=== PATIENT | male | born 1965 | race Caucasian/White ===

== ENCOUNTER 2016-09-01 19:23 | Emergency (ER) | payer SELFPAY ==
[~2016-09-01 19:23] MED LIST: ABILIFY15 MG PO; ASA CHILDREN'S81 MG PO; CELEXA10 MG PO; CELEXA40 MG PO; GLUCOPHAGE-DPS500 MG PO; GLUCOTROL DPS10 MG PO; IMDUR DPS30 MG PO; LANTUS100 UNITS/ SQ; MEVACOR40 MG PO; MOTRIN-DPS800 MG PO; MULTI VITAMIN1 EACH PO; NITROSTAT0.4 MG SL; NOVOLOG100 UNIT/2 SQ; PLAVIX75 MG PO; SEROQUEL50 MG PO; XANAX DPS0.25 MG PO
--- NOTE | 2016-09-21 21:26 | ER ---
ADMIT: 09/01/2016 RM/LOC: ER [facility] MR#: [id number] [address] [address] [address] [place] [address] Emergency Room Report SEX: M AGE: 51 : 1965 DATE: 09/01/2016 A 51-year-old gentleman, brought to the Emergency Department by rescue after complaining of abdominal/chest pain on the right side radiating down the right arm while he was at work. He described it as not sensation, at times radiating into his right shoulder, extremely vague. Apparently, he was given some nitroglycerin by the emergency personnel, which only made his symptoms worse. His physical exam was noted for tenderness in the right upper quadrant of his abdomen; however, his lab work returned normal including cardiac markers and EKG, subsequently discharged with diagnosis of atypical chest pain and was instructed to follow up with his doctor tomorrow. Colin Brooke MD/ ricki JOB #: [id number] CC: Dain Rojas MD, Attending Physician Shahla Meza MD, Family Physician
== END 2016-09-01 21:25 | disposition home or self-care (01) ==
LOC: ER 19:23
DX: R07.89 Other chest pain (principal); I10 Essential (primary) hypertension; E11.9 Type 2 diabetes mellitus without complications; F17.210 Nicotine dependence, cigarettes, uncomplicated; Z79.01 Long term (current) use of anticoagulants; Z79.4 Long term (current) use of insulin; Z79.899 Other long term (current) drug therapy

== ENCOUNTER 2016-10-24 01:32 | Emergency (ER) | payer SELFPAY ==
--- NOTE | 2016-10-25 13:40 | NUR ---
Pt triggered as high risk ED user. Attempted to contact pt. No answer, voice mail message left.
--- NOTE | 2016-10-30 07:41 | ER ---
ADMIT: 10/24/2016 RM/LOC: ER [facility] MR#: [id number] [address] [facility] [address] [place], [place] [address] [address] [place] [address] Emergency Room Report SEX: M AGE: 51 : 1965 DATE: 10/24/2016 TIME: 0132 hours. Please refer to my T-sheet for complete H and P. HISTORY OF PRESENT ILLNESS: Briefly, the patient is a 51-year-old who said he bent over to crab picker a basket, did not even pick it up. He has been having muscle spasms. It has been going on two days, rates it 8 to 9 out of 10. He cannot even walk or move around. He cannot go to work, he says. PHYSICAL EXAMINATION: VITAL SIGNS: Stable. BACK: He has spasm in the lower lumbar region. Worse with range of motion, extending down with spasm anytime he moves. Neuro: No focal findings. EMERGENCY DEPARTMENT COURSE: He drove here. He did not want anything specifically now. He would take it when he gets home. He is ready for discharge. ASSESSMENT: Acute myofascial spasm, lumbar in nature. PLAN: Massage. Return if worse. He can ice and rest. I gave him a script for Flexeril 10 mg. I gave him 15. Hull 5, I gave him 20. Follow up with [facility]. Faustino Lemus MD/ ricki JOB #: [id number] CC: Faustino Lemus MD, Attending Physician
== END 2016-10-24 02:25 | disposition home or self-care (01) ==
LOC: ER 01:32
DX: M62.830 Muscle spasm of back (principal); E11.9 Type 2 diabetes mellitus without complications; F17.210 Nicotine dependence, cigarettes, uncomplicated; Z86.711 Personal history of pulmonary embolism